=== PATIENT | female | born 1955 | race Caucasian/White ===

== ENCOUNTER → 2023-02-02 12:02 | Outpatient (BNVA) | payer SELFPAY | PROVIDERS: Family Provider Family Medicine; PCP Family Medicine; Visit Provider Clinical Nurse Specialist Adult Health | DX: N39.0 Urinary tract infection, site not specified (principal) | CPT/HCPCS: 81000 ==

== ENCOUNTER → 2023-03-15 09:25 | Outpatient (BNVA) | payer SELFPAY | PROVIDERS: Family Provider Family Medicine; PCP Family Medicine; Visit Provider Family Medicine | DX: I10 Essential (primary) hypertension (principal); N32.89 Other specified disorders of bladder; H81.10 Benign paroxysmal vertigo, unspecified ear | CPT/HCPCS: 80053; 80061; 84443; 85025 ==

== ENCOUNTER 2024-03-13 21:14 | Observation (INO) | payer MEDICARE, SELFPAY ==
[2024-03-13 21:15] VITALS: BP 167/89; PULSE 83; RESP 18; TEMP 36.7; O2SAT 96; BMI 42.0
--- NOTE | 2024-03-13 21:24 | ED_ITS ---
HPI - Nausea/Vomiting/Diarrhea 2 General: Chief complaint: Nausea/Vomiting/Diarrhea Stated complaint: N/V Time Seen by Provider: 03/13/24 21:19 Source: patient Mode of arrival: ambulatory Limitations: no limitations History of Present Illness: Patient is a 68-year-old female who presents to the ED today via EMS for evaluation of nausea and vomiting. Patient tells me following dinner yesterday evening she immediately began feeling nauseous and vomited up her meal. She states nausea has continued throughout today. She has not ate anything since yesterday evening. She states she has tried to hold down liquids but has also vomited those up. She is not having any abdominal pain. She states she is still passing stool and flatulence. She is not running fevers. She arrives with stable vital signs. Previous abdominal surgeries include a hysterectomy. PMH significant for hypertension and COPD. Daily medications include hydrochlorothiazide and lisinopril. MD elicited complaint: nausea and vomiting Onset (ago): day(s) (yesterday) Associated nausea: Yes Associated abdominal pain: No Location of pain: None Exacerbating factors: eating Relieving factors: none Associated symtoms: Reports nausea; Denies chest pain, dizziness, dysuria, fatigue, headache(s) or malaise Related Data Previous Rx's Medication Instructions Recorded meclizine 25 mg tablet 25 mg PO TID #20 tabs 10/18/22 sulfamethoxazole 800 1 tab PO Q12H #14 tabs 02/02/23 mg-trimethoprim 160 mg tablet (Bactrim DS) hydrochlorothiazide 25 mg tablet 25 mg PO DAILY #30 tabs 03/15/23 lisinopril 20 mg tablet 20 mg PO BID #60 tabs 03/15/23 Allergies Allergy/AdvReac Type Severity Reaction Status Date / Time cephalexin [From Keflex] Allergy Severe ADR-Vomitin Verified 03/13/24 21:20 g Review of Systems 2 Const: Denies: fever(s), chills, body aches, fatigue or malaise Card: Denies: chest pain Resp: Denies: dyspnea GI: Reports: abdominal pain (states it feels sore from vomiting), nausea and vomiting; Denies: hematemesis, dysphagia, change in bowel habits, hematochezia or melena : Denies: flank pain, difficulty voiding, dysuria, urinary frequency, urinary urgency or urinary hesitancy Musc: Denies: neck pain, back pain, extremity pain or joint pain Skin/Breast: Denies: rash Neuro: Denies: headache(s), numbness in extremities, weakness in extremities, sensory changes or dizziness PFSH ED 2 PFSH: Medical History Migraine Hypertension Surgical History S/P ESPERANZA-BSO age 30 Family History Other Hypertension Denies family history of Clotting disorder Anesthesia complication Bleeding disorder Social History Smoking and tobacco/nicotine status: current some day tobacco/nicotine user Alcohol intake: never Physical Exam 2 Const: COMMON NORMALS: no acute distress, patient oriented x3, no limitations, alert and well nourished GENERAL APPEARANCE: cooperative NUTRITIONAL APPEARANCE: obese morbidly obese (BMI 42.1) ORIENTATION/CONSCIOUSNESS: Yes awake, Yes oriented to person, Yes oriented to place and Yes oriented to time Eye: COMMON NORMALS: no scleral icterus Chest: COMMONS NORMALS: normal inspection of the chest and normal palpation of entire chest wall Resp: COMMON NORMALS: normal respiratory effort and clear to auscultation bilaterally AUSCULTATION: clear to auscultation bilaterally Cardio: COMMON NORMALS: regular rate and regular rhythm RATE: regular rate RHYTHM: regular rhythm GI: COMMON NORMALS: Soft to palpation, non-tender and no masses INSPECTION: Yes normal to inspection AUSCULTATION: Yes Hypoactive bowel sounds present PALPATION: Yes Soft to palpation, No Tenderness to palpation present (GI), No Guarding due to palpation present (GI) and No Rigid due to palpation OTHER: exam limited secondary to body habitus : COMMON NORMALS: Yes no CVA tenderness BLADDER/KIDNEY EXAM: Yes no CVA tenderness Back/Pelvis: COMMON NORMALS: no CVA tenderness and thoracic and lumbar spine normal to inspection Extremity: COMMON NORMALS: capillary refill normal, no clubbing, cyanosis or edema, no calf tenderness and no pedal edema GENERAL: Yes normal exam except as noted Neuro: CHARLEEN COMA SCALE: document GCS findings Charleen coma scale eye opening: Spontaneous Charleen coma scale verbal response: Orientated Charleen coma scale motor response: Obey commands [place] coma scale total score: 15 COMMON NORMALS: patient oriented x3, moves all extremities, no focal motor deficits and no sensory deficits noted SENSORIUM/ORIENTATION: Yes alert, Yes oriented to person, Yes oriented to place and Yes oriented to time Skin: COMMON NORMALS: no rashes or lesions noted GENERAL SKIN EXAM: no rashes or lesions noted Course 2 Consultations: Consultation #1: Dr. Rice-admit to observation Vital Signs: Vital signs: Vital Signs Temperature 98.0 F 03/13/24 21:15 Pulse Rate 83 03/13/24 21:15 Respiratory Rate 18 03/13/24 21:15 Blood Pressure 167/89 03/13/24 21:15 Pulse Oximetry 96 03/13/24 21:15 Oxygen Delivery Me thod Room Air 03/13/24 21:15 MDM - Nausea/Vomiting/Diarrhea Medical Decision Making Patient is a nice 68-year-old female here for nausea and vomiting starting yesterday evening. She is not having any abdominal pain or obstructive symptoms. She is passing stool and flatulence. Her abdominal XR did not indicate obstruction. Her vital signs are stable. Blood work showing a minor white count of 13.6 most likely from vomiting. She does have acute hyponatremia at 126. Recommend observation for this. Discussed with Dr. Pendleton who agrees. Spoke to Dr. Rice who will accept hospitalization/observation. Medical Records I reviewed the patient's medical records. Lab Data I reviewed the patient's lab results. 03/13/24 21:58 03/13/24 21:58 Radiology Impressions Abdomen X-Ray 03/13/24 21:24 IMPRESSION: Negative for bowel dilation to indicate obstruction. Laboratory Results WBC 13.67 10^3/uL (3.29-11.43) H 03/13/24 21:58 RBC 4.91 10^6/uL (3.85-5.65) 03/13/24 21:58 Hgb 13.80 g/dL (11.27-16.99) 03/13/24 21:58 Hct 40.8 % (36-47) 03/13/24 21:58 MCV 83.1 fl (85-98) L 03/13/24 21:58 MCH 28.1 pg (27-33) 03/13/24 21:58 MCHC 33.8 g/dL (30-55) 03/13/24 21:58 RDW 13.2 % (12.1-15.1) 03/13/24 21:58 Plt Count 284 10^3/cmm (157-399) 03/13/24 21:58 MPV 9.4 fL (7.4-10.4) 03/13/24 21:58 Neut % (Auto) 81.7 % 03/13/24 21:58 Lymph % (Auto) 13.5 % 03/13/24 21:58 Potter % (Auto) 4.2 % 03/13/24 21:58 Eos % (Auto) 0.1 % 03/13/24 21:58 Baso % (Auto) 0.1 % 03/13/24 21:58 Neut # (Auto) 11.17 10^3/uL (1.8-7.7) H 03/13/24 21:58 Lymph # (Auto) 1.8 10^3/uL (0.8-4.8) 03/13/24 21:58 Potter # (Auto) 0.6 10^3/uL (0.2-0.9) 03/13/24 21:58 Eos # (Auto) 0.0 10^3/uL (0.0-0.8) 03/13/24 21:58 Baso # (Auto) 0.0 10^3/uL (0.0-0.1) 03/13/24 21:58 Nucleated RBC % (auto) 0 % 03/13/24 21:58 Nucleated RBCs # 0.0 /100WBC 03/13/24 21:58 Sodium 126 mmol/L (136-145) L 03/13/24 21:58 Potassium 3.7 mmol/L (3.5-5.1) 03/13/24 21:58 Chloride 83 mmol/L (98-107) L 03/13/24 21:58 Carbon Dioxide 27 mmol/L (22-29) 03/13/24 21:58 Anion Gap 19.7 (5-19) H 03/13/24 21:58 BUN 18 mg/dL (8-23) 03/13/24 21:58 Creatinine 0.8 mg/dL (0.5-0.9) 03/13/24 21:58 GFR Calculation 71.8 mL/min (90-130) L 03/13/24 21:58 Glucose 171 mg/dL (65-115) H 03/13/24 21:58 Calculated Osmolality 268 mOsm/kg (285-295) L 03/13/24 21:58 Calcium 9.8 mg/dL (8.5-10.5) 03/13/24 21:58 Total Bilirubin 0.6 mg/dL (0.15-1.2) 03/13/24 21:58 AST 20 U/L (0-32) 03/13/24 21:58 ALT 25 U/L (0-33) 03/13/24 21:58 Alkaline Phosphatase 83 U/L (35-105) 03/13/24 21:58 Total Protein 7.5 g/dL (6.6-8.7) 03/13/24 21:58 Albumin 4.5 g/dL (3.5-5.2) 03/13/24 21:58 Globulin 3.0 g/dL (1.3-4.6) 03/13/24 21:58 Lipase 34 U/L (13-60) 03/13/24 21:58 All radiology interpretation(s) finalized by discharge Discharge Plan Discharge Patient Disposition: Placed in Observation Clinical Impression: Nausea and vomiting, Acute hyponatremia Condition: Stable Prescriptions: No Action meclizine 25 mg tablet 25 mg PO TID Qty: 20 11RF lisinopril 20 mg tablet 20 mg PO BID Qty: 60 11RF hydrochlorothiazide 25 mg tablet 25 mg PO DAILY Qty: 30 11RF sulfamethoxazole-trimethoprim [Bactrim DS] 800-160 mg tablet 1 tab PO Q12H Qty: 14 0RF Referrals: Osman Gerber MD [Primary Care Provider] - Coding Level of Care Code ED Outside Repairer Special for Corie Maddox
--- NOTE | 2024-03-13 21:24 | XRR_ITS ---
PROCEDURE INFORMATION: Exam: XR Abdomen Exam date and time: 03/13/2024 9:33 PM Age: 68 years old Clinical indication: Vomiting; Prior surgery; Surgery date: 6+ months; Surgery type: Total hysterectomy TECHNIQUE: Imaging protocol: Radiologic exam of the abdomen. Views: 2 Views. Upright and supine views. COMPARISON: CR XR chest 1V [id number] 08/06/2018 11:16 AM FINDINGS: Heart/Mediastinum: Cardiomegaly. Gastrointestinal tract: Normal. No bowel dilation. Intraperitoneal space: Normal. No free air. Bones/joints: Unremarkable for age. XR/XR abdomen min 2V [id number] IMPRESSION: Negative for bowel dilation to indicate obstruction.
[2024-03-13 22:03] LABS: Basophils % 0.1 %; Eosinophils % 0.1 %; Hematocrit 40.8 % (36-47); Lymphocytes # 1.8 10^3/uL (0.8-4.8); Lymphocytes % 13.5 %; Mean Corpuscular HGB Conc 33.8 g/dL (30-55); Mean Corpuscular Hemoglobin 28.1 pg (27-33); Mean Corpuscular Volume 83.1 fl (85-98); Mean Platelet Volume 9.4 fL (7.4-10.4); Monocytes # 0.6 10^3/uL (0.2-0.9); Monocytes % 4.2 %; Neutrophils # 11.17 10^3/uL (1.8-7.7); Neutrophils % 81.7 %; Nucleated Red Blood Cells % 0 %; Platelet Count 284 10^3/cmm (157-399); Red Blood Count 4.91 10^6/uL (3.85-5.65); Red Cell Distribution Width 13.2 % (12.1-15.1); White Blood Count 13.67 10^3/uL (3.29-11.43)
[2024-03-13] MEDS: sodium chloride 0.9% 1,000 ML 999 ML IV (22:14)
[2024-03-13] MEDS: metoclopramide 5 mg/mL SDV 2 mL 10 MG IVP (22:14)
[2024-03-13 22:20] LABS: Alanine Aminotransferase 25 U/L (0-33); Albumin Level 4.5 g/dL (3.5-5.2); Alkaline Phosphatase 83 U/L (35-105); Anion Gap 19.7 (5-19); Aspartate Amino Transferase 20 U/L (0-32); Blood Urea Nitrogen 18 mg/dL (8-23); Calcium 9.8 mg/dL (8.5-10.5); Carbon Dioxide 27 mmol/L (22-29); Chloride 83 mmol/L (98-107); Creatinine Clr Calc Pharmacy 78.3961; Glomerular Filtration Rate 71.8 mL/min (90-130); Glucose 171 mg/dL (65-115); Lipase 34 U/L (13-60); Osmolality Calculated 268 mOsm/kg (285-295); Potassium 3.7 mmol/L (3.5-5.1); Sodium 126 mmol/L (136-145); Total Bilirubin 0.6 mg/dL (0.15-1.2); Total Protein 7.5 g/dL (6.6-8.7)
[2024-03-14] VITALS (8 sets, daily range): BP systolic 128–180; BP diastolic 72–90; PULSE 75–97; RESP 17–18; TEMP 36.6–37.1; O2SAT 91–96; BMI 41.1
[2024-03-14] MEDS: ondansetron 2 mg/ML SDV 2 mL 4 MG IVP ×4 (00:22→18:35)
--- NOTE | 2024-03-14 01:25 | P.HP_ITS ---
Providers/Chief Complaint 2 Admitting Physician: Marciano Rice Primary Care Provider: Osman Gerber MD Chief Complaint: N/V History of Present Illness Pleasant 68-year-old lady came in for evaluation due to 2 days of recurrent nausea and vomiting, dizziness with everything spinning around her with difficulty walking, has been unable to keep anything down by mouth. Has had 1 episode of watery diarrhea today. In ER she is hypertensive, blood pressure 196/105, she normally takes HCTZ, lisinopril. She is afebrile, WBC 13.67. Sodium is noted to be 126. Glucose also with elevation 171 without history of diabetes. Anion gap 19.7. Abdominal x-ray negative for bowel dilation to indicate obstruction. She received a bolus of sodium chloride, Zofran and Reglan in ER. She does not take any NSAIDs but does take Excedrin daily. Denies any hematemesis. Never smoker. Does not drink any alcohol. Has been having some abdominal as well as shoulder and neck discomfort after vomiting episodes. She also reports history of recurrent sebaceous cyst but states one of them had opened up and has been having purulent drainage on the superior left buttock which she states they have been draining daily with her and applying a dressing. Review of Systems 2 Const: Denies: fever(s), chills, body aches or malaise ENMT: Denies: throat pain Card: Denies: chest pain, edema, pre-syncope or dyspnea on exertion Resp: Denies: dyspnea, productive cough, change in phlegm color or hemoptysis GI: Reports: nausea, vomiting and diarrhea (Only 1 episode today); Denies: abdominal pain, constipation, hematochezia or melena : Denies: flank pain, urinary frequency or hematuria Musc: Denies: back pain, joint swelling or joint redness Skin/Breast: Reports: new lesions; Denies: rash Neuro: Reports: difficulty walking and dizziness; Denies: headache(s) or confusion Medications/Allergies Home Medications Medication Instructions Recorded Confirmed Last Taken Type hydrochlorothiazide 25 mg tablet 25 mg PO DAILY #30 tabs 03/15/23 03/14/24 1 Day Ago Rx ~03/13/24 lisinopril 20 mg tablet 20 mg PO BID #60 tabs 03/15/23 03/14/24 1 Day Ago Rx ~03/13/24 Allergies Allergy/AdvReac Type Severity Reaction Status Date / Time cephalexin [From Keflex] Allergy Severe ADR-Vomitin Verified 03/13/24 21:20 g PFSH Acute 2 PFSH: Medical History Migraine Hypertension Surgical History S/P ESPERANZA-BSO age 30 Family History Other Hypertension Denies family history of Clotting disorder Anesthesia complication Bleeding disorder Social History Smoking and tobacco/nicotine status: current some day tobacco/nicotine user Alcohol intake: never Vitals/I&O/Wt Last Vital Signs Temp 98.0 F 03/13/24 21:15 Pulse 95 03/14/24 00:47 Resp 18 03/14/24 00:47 BP 180/86 03/14/24 00:47 Pulse Ox 91 03/14/24 00:47 O2 Del Method Room Air 03/13/24 21:15 03/13/24 03/13/24 03/14/24 14:59 22:59 06:59 Intake Total 1000 / 1000 Balance 1000 / 1000 Weight last 48 hrs Weight 102.058 kg Weight 104.326 kg Physical Exam 2 Narrative: Sitting up in bed. Const: COMMON NORMALS: patient oriented x3 and alert GENERAL APPEARANCE: c ooperative NUTRITIONAL APPEARANCE: obese ORIENTATION/CONSCIOUSNESS: Yes awake HENMT: COMMON NORMALS: oropharynx normal Neck/C-Spine: COMMON NORMALS: no JVD Resp: COMMON NORMALS: normal respiratory effort and clear to auscultation bilaterally AUSCULTATION: clear to auscultation bilaterally Cardio: COMMON NORMALS: no JVD, regular rhythm, S1 normal heart sound present, S2 normal heart sound present and No murmurs present (Cardio) RHYTHM: regular rhythm HEART SOUNDS: S1 normal heart sound present and S2 normal heart sound present GI: COMMON NORMALS: Normal to inspection, nondistended, normoactive bowel sounds present, Soft to palpation and non-tender PALPATION: Yes Soft to palpation Extremity: COMMON NORMALS: no joint enlargement and no pedal edema Neuro: COMMON NORMALS: patient oriented x3 and moves all extremities S ENSORIUM/ORIENTATION: Yes alert Skin: LESIONS: lesion noted (L buttock pustule with purulent discharge, 1.5 cm in size, mild rim of eryt) Data 03/13/24 21:58 03/13/24 21:58 A&P Assessment and plan (1) Acute hyponatremia: Suspected acute hyponatremia, but timing is not clear, chronic hyponatremia is possible as well. Reviewed vitals, CBC, CMP, abdominal x-ray, ER provider note, discussed with ER provider. Suspected multifactorial hyponatremia including hypovolemic with poor oral intake, nausea and vomiting, today also had 1 episode of watery diarrhea. Additionally secondary to HCTZ. She received a bolus of NS. Will request repeat chemistry, continue with gentle IV hydration. Monitor for risk of rapid increase in sodium, which would be less concerning with acute hyponatremia, although as mentioned exact timing is unknown. Monitor for risk of fluid overload. Check TSH. Check urine sodium, urine osmolality. Check respiratory viral panel. Hold and consider discontinuation of HCTZ at discharge. (2) Nausea and vomiting: Difficult to tell whether nausea vomiting related to hyponatremia or the cause of hyponatremia, although likely contributing. Lipase reviewed and normal. Possible gastritis from Excedrin. PPI started. Discussed with her to avoid Excedrin for now. Never smoker, does not drink alcohol or recreational substance. Does not take any other NSAIDs. Check respiratory viral panel. Discussed with her also, with smoking, hypertension, hyperglycemia (without history of diabetes), difficulty with ambulation, vertigo, assess MRI brain for possible posterior circulation CVA. NPO. Sips chips and meds. Zofran as needed. Qualifiers: Vomiting type: unspecified Qualified Code(s): R11.2 - Nausea with vomiting, unspecified (3) Vertigo: As above, assess MRI for possible posterior circulation CVA. Aspirin 162. Gentle IV hydration. Monitor blood pressures. Avoid hypotension. Not a candidate for reperfusion therapy. Monitor on telemetry. Assess A1c. Encourage smoking cessation. Optimize risk factors. Additional assessment in case CVA identified on MRI. Assess respiratory viral panel. Fall precautions. PT assessment. (4) Skin pustule: Superior left buttock pustule with purulent discharge. With purulent discharge, requesting culture. Discussed with her for now treatment of doxycycline, additional assessment with soft tissue ultrasound to assess for any abscess that needs surgical drainage. (5) Hypertension: Hold HCTZ with hyponatremia, continue lisinopril. Monitor blood pressure. (6) Hyperglycemia: Without history of diabetes, assess A1c. Plan Smoking: Encourage cessation. Migraine Obesity: Follow-up with primary provider for weight loss options Attestations 2 Medical Necessity Statement*: Place in observation for additional assessment and management of hyponatremia, nausea and vomiting with inability to keep oral intake, vertigo, assessment of possible CVA, assessment of skin pustule for possible abscess and additional comorbidities as above. and High MDM includes amount and/or complexity of data reviewed/ordered [ resulted lab(s)/test(s), ordered lab(s)/test(s) and other healthcare professional discussion] and described risk of complication, morbidity or mortality of management as documented Diagnoses Acute hyponatremia E87.1 Nausea and vomiting R11.2 Vomiting type: unspecified Vertigo R42 Skin pustule L08.9 Hypertension I10 Hyperglycemia R73.9
--- NOTE | 2024-03-14 01:25 | MR_ITS ---
WS: [id number] MRI BRAIN WITHOUT CONTRAST HISTORY: vertigo, assess for post circ CVA COMPARISON: None available. TECHNIQUE: Diffusion imaging, multiplanar T1, T2 and FLAIR imaging obtained. No evidence for acute infarct or hemorrhage. Lai-white matter differentiation is normal. Moderate bilateral symmetric volume loss and atrophy, more than expected for the patient's age. There are numerous patchy areas of increased T2 and FLAIR signal throughout the white matter. Additional s mall vessel disease in the nicole bilateral. No prior large territory infarct or lacuna. Ventricles and extra-axial spaces are normal. No inferior displacement of cerebellar tonsils. The sella turcica and pituitary gland are unremarkabl e. Dural venous sinuses and [place] of [place] demonstrate no abnormality on this unenhanced studies. Norm al flow voids. Paranasal sinuses: Clear. Mastoid air cells: Normal. Calvarium and scalp: Intact. Well-circumscribed superficial mass centered anterior to the left ear measures 11 x 14 mm. Low signal on the T1 and increased on T2. This is very superficial and is probably a sebaceous cyst. Appears to be external to the parotid gland. 2 smaller but similar findings along the RIGHT temporal region. MR/MR head wo con* [id number] IMPRESSION: 1. No acute infarct. No posterior fossa infarct. 2. Moderate volume loss and small vessel ischemic disease, more advanced than expected for a patient of this age. May be related to hypertension, diabetes or smoking.
--- NOTE | 2024-03-14 01:30 | US_ITS ---
WS: [id number] ULTRASOUND SOFT TISSUES LEFT gluteal region. HISTORY: L buttock pustule COMPARISON: None available. TECHNIQUE: 2-D and color Doppler imaging is submitted. There is a heterogeneous mass which is predominantly solid with a few cystic areas and increased vasc ularity associated with the LEFT buttock. This corresponds to the mass described. There is marked inc reased vascularity. There does appear to be a tract extending superficial. Mass measures 2.0 x 0.7 cm . US/US soft tissue/extremity [id number] IMPRESSION: Complex mass with increased vascularity centered in the LEFT gluteal region. Th is is probably a phlegmon and developing abscess due to the marked increased va scularity and heterogeneity. There may be a few small foci of air present also. There is very little fluid component.
[2024-03-14 01:37] LABS: Ketone (Acetest) Serum Negative (Negative)
[2024-03-14 01:48] LABS: Lactate (Lactic Acid level) 1.3 mmol/L (0.5-2.2)
[2024-03-14 01:50] LABS: Salicylate < 0.3 mg/dL (3-10)
[2024-03-14 01:55] LABS: Estmated Average Glucose 123; Hemoglobin A1C 5.9 % (4.0-6.0)
[2024-03-14] MEDS: doxycycline 100 MG in sodium chloride 0.9% (plus) 100 ML IV (02:03)
[2024-03-14] MEDS: enoxaparin 40 mg/0.4 mL Syringe SUBCUT (02:03)
[2024-03-14] MEDS: lactated ringers 1,000 ML 30 ML IV (02:03)
[2024-03-14] MEDS: acetaminophen 325 mg Tablet 650 MG PO ×2 (02:03→20:22)
[2024-03-14] MEDS: pantoprazole 40 mg SDV IVP (02:03)
[2024-03-14] MEDS: lisinopril 20 mg Tablet PO ×3 (02:04→18:00)
[2024-03-14] MEDS: aspirin 81 mg EC Tablet 162 MG PO (02:04)
[2024-03-14 02:11] LABS: Thyroid Stimulating Hormone 3.32 uIU/mL (0.27-4.20)
[2024-03-14 03:11] LABS: Adenovirus Not Detected (NOT DETECT); Chlamydia Pneumoniae Not Detected (NOT DETECT); Coronavirus 229E,HKU1,NL63,OC4 Not Detected (NOT DETECT); Human Metapneumovirus Not Detected (NOT DETECT); Human Rhinovirus/Enterovirus Not Detected (NOT DETECT); Influenza A Not Detected (NOT DETECT); Influenza A H1 Not Detected (NOT DETECT); Influenza A H1-2009 Not Detected (NOT DETECT); Influenza A H3 Not Detected (NOT DETECT); Influenza B Not Detected (NOT DETECT); Mycoplasma Pneumoniae Not Detected (NOT DETECT); Parainfluenza Virus Type 1 Not Detected (NOT DETECT); Parainfluenza Virus Type 2 Not Detected (NOT DETECT); Parainfluenza Virus Type 3 Not Detected (NOT DETECT); Parainfluenza Virus Type 4 Not Detected (NOT DETECT); Respiratory Syncytial Virus A Not Detected (NOT DETECT); Respiratory Syncytial Virus B Not Detected (NOT DETECT); SARS-COV-2 Not Detected (NOT DETECT)
[2024-03-14 05:52] LABS: Basophils % 0.1 %; Eosinophils % 0.1 %; Lymphocytes % 19.1 %; Mean Corpuscular Volume 84.9 fl (85-98); Mean Platelet Volume 9.7 fL (7.4-10.4); Monocytes # 0.5 10^3/uL (0.2-0.9); Monocytes % 4.8 %; Neutrophils # 7.96 10^3/uL (1.8-7.7); Neutrophils % 75.4 %; Nucleated Red Blood Cells % 0 %; Platelet Count 279 10^3/cmm (157-399); Red Blood Count 4.71 10^6/uL (3.85-5.65); Red Cell Distribution Width 13.1 % (12.1-15.1); White Blood Count 10.55 10^3/uL (3.29-11.43)
[2024-03-14 06:17] LABS: Blood Urea Nitrogen 16 mg/dL (8-23); Carbon Dioxide 26 mmol/L (22-29); Chloride 88 mmol/L (98-107); Creatinine Clr Calc Pharmacy 78.2354; Glucose 112 mg/dL (65-115); Osmolality Calculated 264 mOsm/kg (285-295); Sodium 126 mmol/L (136-145)
[2024-03-14 06:23] LABS: Anion Gap 15.8 (5-19); Potassium 3.8 mmol/L (3.5-5.1)
[2024-03-14 07:09] LABS: Bilirubin Urine Negative (Negative); Blood Urine Negative (Negative); Glucose Urine UA Negative (Normal); Ketones Urine 1+ (Negative); Leukocyte Esterase Urine Negative (Negative); Nitrate Urine Negative (Negative); Protein Urine Trace (Negative); Specific Gravity, Urine 1.022 (1.005-1.030); Urine Appearance Clear (CLEAR); Urine Color Yellow (Yellow); pH Urine 5.5 (5-7)
[2024-03-14 07:14] LABS: Add Urine Microscopic? YES; Bacteria Urine None Seen /hpf; Hyaline Casts Urine 2.05 /lpf; RBC Urine 0-2 /hpf (0-2); Squamous Epithelial Cell Urine 0-5 /hpf (0-5); WBC Urine 0-5 /hpf (0-5)
[2024-03-14 07:26] LABS: Add Urine Culture? No; UA Slide Review UA Slide Review Perf
--- NOTE | 2024-03-14 08:24 | PHA.VACGOAL ---
Vancomycin Goal - Goal Vancomycin Goal:: 10-15 mg/L Vancomycin Indication:: SSTI - Therapy Current therapy:: Pip/Tazo Day of therpy:: Day [1]of [] . Actual body weight (kg): 103.958 kg - Data Labs: WBC 10.55 10^3/uL (3.29-11.43) 03/14/24 04:47 RBC 4.71 10^6/uL (3.85-5.65) 03/14/24 04:47 Hgb 13.20 g/dL (11.27-16.99) 03/14/24 04:47 Hct 40.0 % (36-47) 03/14/24 04:47 MCV 84.9 fl (85-98) L 03/14/24 04:47 MCH 28.0 pg (27-33) 03/14/24 04:47 MCHC 33.0 g/dL (30-55) 03/14/24 04:47 RDW 13.1 % (12.1-15.1) 03/14/24 04:47 Sodium 126 mmol/L (136-145) L 03/14/24 04:47 Potassium 3.8 mmol/L (3.5-5.1) 03/14/24 04:47 Chloride 88 mmol/L (98-107) L 03/14/24 04:47 Carbon Dioxide 26 mmol/L (22-29) 03/14/24 04:47 Anion Gap 15.8 (5-19) 03/14/24 04:47 BUN 16 mg/dL (8-23) 03/14/24 04:47 Creatinine 0.6 mg/dL (0.5-0.9) 03/14/24 04:47 GFR Calculation 100.0 mL/min (90-130) 03/14/24 04:47 Last dialysis session:: N/A Treatment plan:: new consult Regimen:: Patient is 68 year old female with Superior left buttock pustule with purulent discharge. Scr of 0.6 mg/dL with CrCl of 78.23 ml/min. WBC elevated at 13.67 upon admission trending down to 10.55. Start on maintenance dose of 750 mg q12h. T 1/2 of 11 hours and an expected Cmin of 12.7 mg/L. Pharmacy will continue to monitor daily.
[2024-03-14] MEDS: vancomycin 750 MG in sodium chloride 0.9% 250 ML 250 MG IV ×2 (08:50→20:08)
[2024-03-14] MEDS: piperacillin-tazobactam 3.375 GM in sodium chloride 0.9% (plus) 50 ML IV ×2 (10:16→18:01)
[2024-03-14 10:37] LABS: Urine Random Sodium 61 mmol/L
[2024-03-14 11:21] LABS: Sodium 124 mmol/L (136-145)
--- NOTE | 2024-03-14 14:03 | P.PN_ITS ---
Subjective 2 Subjective: - Patient was seen this morning -She is alert oriented x 3, following al l commands -She reports dizziness when changing hea d position or suddenly turning her head, typically dizziness is short-lived, intermittently associate with nausea -Her nausea is mild currently, no diarrh ea, no abdominal pain -Denies any facial droop, no slurring of words, no focal weakness, no unsteadiness on her feet -She does report a left gluteal pustule, that has been draining for the last few weeks, she tells me that at home her has been helping drain the pustule, she has had increased purulent drainage Vitals/I&O/Wt Last Vital Signs Temp 98.4 F 03/14/24 12:00 Pulse 81 03/14/24 12:00 Resp 18 03/14/24 12:00 BP 128/73 03/14/24 12:00 Pulse Ox 95 03/14/24 12:00 O2 Del Method Room Air 03/14/24 12:00 03/13/24 03/14/24 03/14/24 22:59 06:59 14:59 Intake Total 1200 / 1200 250 / 250 Output Total 200 / 200 Balance 1200 / 1200 50 / 50 Weight last 48 hrs Weight 103.958 kg Weight 102.058 kg Weight 104.326 kg Physical Exam 2 Const: COMMON NORMALS: no acute distress and patient oriented x3 Resp: COMMON NORMALS: normal respiratory effort, No retractions, No use of accessory muscles and clear to auscultation bilaterally AUSCULTATION: clear to auscultation bilaterally Cardio: COMMON NORMALS: regular rate, regular rhythm, S1 normal heart sound present and S2 normal heart sound present RATE: regular rate RHYTHM: r egular rhythm HEART SOUNDS: S1 normal heart sound present and S2 normal heart sound present GI: COMMON NORMALS: Normal to inspection, nondistended, normoactive bowel sounds present and non-tender Back/Pelvis: OTHER: Right gluteus, area of erythema, purulent drainage, measuring 1 x 1 cm Extremity: COMMON NORMALS: no pedal edema Neuro: COMMON NORMALS: patient oriented x3 Psych: COMMON NORMALS: mental status grossly normal Data 03/14/24 04:47 03/14/24 10:44 Micro: Microbiology 03/14/24 06:20 Gram Stain - Final Buttock A&P Assessment and plan (1) Acute hyponatremia: - Likely component of nausea, vomiting, diarrhea, hydrochlorothiazide -Will hold off of further fluid therapy -Monitor serum sodiums -Will consider salt therapy based on clinical progress -Neurochecks ? Aspiration precautions (2) Nausea and vomiting: - Will monitor nausea vomiting ? Nausea medications ordered Qualifiers: Vomiting type: unspecified Qualified Code(s): R11.2 - Nausea with vomiting, unspecified (3) Vertigo: Sounds like benign positional vertigo ? MRI of the brain no acute finding neck -Will have PT OT assess her ? Check orthostatic vitals (4) Skin pustule: Ultrasound of gluteus shows US/US soft tissue/extremity [id number] IMPRESSION: Complex mass with increased vascularity centered in the LEFT gluteal region. This is probably a phlegmon and developing abscess due to the marked increased vascularity and heterogeneity. There may be a few small foci of air present also. There is very little fluid component Plan ? Continue vancomycin, continue Zosyn -Is currently n.p.o. ? General Surgery consulted for incision and drainage. (5) Hypertension: Hold HCTZ with hyponatremia, continue lisinopril. Monitor blood pressure. (6) Hyperglycemia: Without history of diabetes, assess A1c 5.9 (7) Gluteal abscess: Plan Smoking: Encourage cessation. Migraine Obesity: Follow-up with primary provider for weight loss options Attestations 2 Medical Necessity Statement*: Patient requires hospitalization for skin abscess, benign positional vertigo, nausea, vomiting, hyponatremia Diagnoses Acute hyponatremia E87.1 Nausea and vomiting R11.2 Vomiting type: unspecified Vertigo R42 Skin pustule L08.9 Hypertension I10 Hyperglycemia R73.9 Gluteal abscess L02.31
[2024-03-14 14:10] LABS: Sodium 125 mmol/L (136-145)
--- NOTE | 2024-03-14 14:13 | P.CONIM_ITS ---
Providers/Reason For Consult 2 Consulting Physician/Specialty*: Dr. Emery Jordan DO/General Surgery Reason for Consult*: Left gluteal abscess Attending Physician: Theron Saez MD Primary Care Provider: Osman Gerber MD History of Present Illness History of Present Illness Savi Lucas is a 68 year old female, with history of recurrent gluteal abscesses, presenting to the hospital with a several day history of left gluteal pain and purulent drainage. She has sharp pain to palpation that does not radiate. Nothing seems to make the pain better. She denies any fever or chills. CT of the area shows a phlegmon Review of Systems 2 General: Reports: 10 or more systems reviewed and unremarkable except in HPI and below Medications/Allergies Home Medications Medication Instructions Recorded Confirmed Last Taken Type hydrochlorothiazide 25 mg tablet 25 mg PO DAILY #30 tabs 03/15/23 03/14/24 1 Day Ago Rx ~03/13/24 lisinopril 20 mg tablet 20 mg PO BID #60 tabs 03/15/23 03/14/24 1 Day Ago Rx ~03/13/24 Allergies Allergy/AdvReac Type Severity Reaction Status Date / Time cephalexin [From Keflex] Allergy Severe ADR-Vomitin Verified 03/13/24 21:20 g Current Medications Generic Name Dose Route Start Last Admin Trade Name Freq PRN Reason Stop Dose Admin Acetaminophen 650 mg 03/14/24 01:30 03/14/24 02:03 Acetaminophen 325 Mg Tablet PO 650 mg Q6H PRN Administration Mild/Mod Pain Or Temp >/= 101 Aspirin 162 mg 03/14/24 01:45 03/14/24 02:04 Aspirin 81 Mg Ec Tablet PO 162 mg DAILY PADMINI Administration Enoxaparin Sodium 40 mg 03/14/24 01:30 03/14/24 02:03 Enoxaparin 40 Mg/0.4 Ml Syringe SUBCUT 40 mg Q24H PADMINI Administration Vancomycin HCl 750 mg/ Sodium 250 mls @ 250 mls/hr 03/14/24 08:30 03/14/24 09:50 Chloride IV Infused Q12H PADMINI Infusion Piperacillin Sod/Tazobactam 50 mls @ 12.5 mls/hr 03/14/24 10:00 03/14/24 10:16 Sod 3.375 gm/ Sodium Chloride IV 12.5 mls/hr Q8H PADMINI Administration Lisinopril 20 mg 03/14/24 01:40 03/14/24 08:42 Lisinopril 20 Mg Tablet PO 20 mg BID PADMINI Administration Ondansetron HCl 4 mg 03/14/24 01:30 03/14/24 10:21 Ondansetron 2 Mg/Ml Sdv 2 Ml IVP 4 mg Q8H PRN Administration vomiting, or N/V if npo Pantoprazole Sodium 40 mg 03/14/24 01:30 03/14/24 02:03 Pantoprazole 40 Mg Sdv IVP 40 mg Q24H PADMINI Administration PFSH Acute 2 PFSH: Medical History Migraine Hypertension Surgical History S/P ESPERANZA-BSO age 30 Family History Other Hypertension Denies family history of Clotting disorder Anesthesia complication Bleeding disorder Social History Smoking and tobacco/nicotine status: current some day tobacco/nicotine user Alcohol intake: never Vitals/I&O/Wt Last Vital Signs Temp 98.4 F 03/14/24 12:00 Pulse 81 03/14/24 12:00 Resp 18 03/14/24 12:00 BP 128/73 03/14/24 12:00 Pulse Ox 95 03/14/24 12:00 O2 Del Method Room Air 03/14/24 12:00 03/13/24 03/14/24 03/14/24 22:59 06:59 14:59 Intake Total 1200 / 1200 250 / 250 Output Total 200 / 200 Balance 1200 / 1200 50 / 50 Weight last 48 hrs Weight 229 lb 3 oz Weight 225 lb Weight 230 lb Physical Exam 2 Narrative: General : Patient is well developed , no acute distress, oriented x3 Head : Normal cephalic, a-traumatic. Ears : Pinnae and external canal are normal. Hearing is normal. Eyes : PERRLA, Sclera and injection are normal. No conjunctival discharge. Nose : Mucous membranes are without erythema. Throat : buccal mucosa is normal, gums are without significant recession or hypertrophy. Lungs : Equal chest rise bilaterally, no use of accessory muscles, trachea is midline. Cor : Rate and rhythm are normal. Abdomen : Soft, ND, NT, no g/r/m Skin: There is an area on the left gluteus with erythema induration and fluctuance draining some purulence Extremities : No edema, no cyanosis or clubbing, dorsalis pedis pulses are present bilaterally, non-tender to palpation of calves. Upper extremities are normal bilaterally. Back : non-tender to palpation, no CVA tenderness. Neuro : CN II - XII intact, Upper and lower extremities have equal and full strength Data 03/14/24 04:47 03/14/24 10:44 Micro: Microbiology 03/14/24 06:20 Gram Stain - Final Buttock A&P Assessment and plan (1) Gluteal abscess: Plan Incision and drainage left gluteal abscess Risks and benefits of the procedure, including but not limited to, bleeding, infection, recurrence, scar, numbness, pain, damage to surrounding structures, were explained to the patient. She is understanding of the risks and wished to proceed. Coding Level of Care Code 55307 Diagnoses Gluteal abscess L02.31
--- NOTE | 2024-03-14 14:26 | PM.PROC ---
Procedure Note: Date of procedure: 03/14/24 Pre-procedure diagnosis: Left gluteal abscess Post-procedure diagnosis: same Procedure: Incision and drainage of left gluteal abscess Op report anesthesia: Local Performing Provider: Emery Jordan Estimated blood loss (mL): 5 Complications: None apparent. The area was inspected prepped and draped usual sterile fashion. Timeout was performed. 2% lidocaine with epinephrine was used to anesthetize the area over the gluteal abscess. A 15 blade scalpel was used to make a 1 cm incision. Some purulence was expelled. Burn tried with gauze was packed into the wound and sterile bandage was applied. Patient tolerated procedure well. Coding Level of Care Code Acute Code for g Fwd
--- NOTE | 2024-03-14 14:33 | SUR.OPER ---
patient brought down for bedside procedure per dr. acosta. timeout done at 1415. supplies requested from OR. 9ml of 1% lidocaine used for local. drained and packed, gauze placed and dressed with microfoam tape. patient tolerated well. report given to floor nurse and returned back to floor.
[2024-03-14] MEDS: capsaicin 0.025% cream 60 gm 1 APPLIC TOPICAL (18:01)
[2024-03-14 18:25] LABS: Sodium 128 mmol/L (136-145)
[2024-03-15] VITALS (9 sets, daily range): BP systolic 109–149; BP diastolic 61–82; PULSE 73–84; RESP 16–18; TEMP 36.8–37.3; O2SAT 91–98
[2024-03-15] MEDS: pantoprazole 40 mg SDV IVP (01:14)
[2024-03-15] MEDS: enoxaparin 40 mg/0.4 mL Syringe SUBCUT (01:14)
[2024-03-15] MEDS: piperacillin-tazobactam 3.375 GM in sodium chloride 0.9% (plus) 50 ML IV (01:14)
[2024-03-15] MEDS: aspirin 81 mg EC Tablet 162 MG PO (08:45)
[2024-03-15] MEDS: vancomycin 750 MG in sodium chloride 0.9% 250 ML 250 MG IV (08:49)
[2024-03-15] MEDS: ondansetron 2 mg/ML SDV 2 mL 4 MG IVP (08:50)
[2024-03-15 09:04] LABS: Basophils % 0.4 %; Eosinophils # 0.1 10^3/uL (0.0-0.8); Eosinophils % 0.7 %; Lymphocytes # 2.4 10^3/uL (0.8-4.8); Lymphocytes % 22.1 %; Mean Corpuscular HGB Conc 32.4 g/dL (30-55); Mean Corpuscular Hemoglobin 27.8 pg (27-33); Mean Corpuscular Volume 85.6 fl (85-98); Mean Platelet Volume 9.3 fL (7.4-10.4); Monocytes # 0.8 10^3/uL (0.2-0.9); Monocytes % 7.1 %; Neutrophils # 7.66 10^3/uL (1.8-7.7); Neutrophils % 69.3 %; Nucleated Red Blood Cells % 0 %; Platelet Count 269 10^3/cmm (157-399); Red Blood Count 4.79 10^6/uL (3.85-5.65); Red Cell Distribution Width 13.5 % (12.1-15.1); White Blood Count 11.05 10^3/uL (3.29-11.43)
--- NOTE | 2024-03-15 09:06 | PC.NURSE ---
Notified Dr. Saez patient refused lisinopril. BP 114/61 patient feels is to low.
[2024-03-15 09:19] LABS: Alanine Aminotransferase 26 U/L (0-33); Albumin Level 3.9 g/dL (3.5-5.2); Alkaline Phosphatase 72 U/L (35-105); Anion Gap 12.6 (5-19); Aspartate Amino Transferase 18 U/L (0-32); Blood Urea Nitrogen 9 mg/dL (8-23); Calcium 8.9 mg/dL (8.5-10.5); Carbon Dioxide 29 mmol/L (22-29); Chloride 94 mmol/L (98-107); Creatinine Clr Calc Pharmacy 79.1295; Globulin 2.8 g/dL (1.3-4.6); Glomerular Filtration Rate 71.8 mL/min (90-130); Glucose 117 mg/dL (65-115); Osmolality Calculated 274 mOsm/kg (285-295); Potassium 3.6 mmol/L (3.5-5.1); Sodium 132 mmol/L (136-145); Total Bilirubin 0.6 mg/dL (0.15-1.2); Total Protein 6.7 g/dL (6.6-8.7)
--- NOTE | 2024-03-15 11:55 | PM.DCS ---
Discharge Providers Date of Admission: 03/14/24 00:00 Date of Discharge: March 15, 2024 Attending Provider at Admission: Marciano Rice Attending Provider at Discharge: Theron Saez MD Primary Care Provider: Osman Gerber MD Diagnoses at Discharge Discharge Diagnosis (1) Gluteal abscess: Status: Acute Reason for Visit Reason for Visit: N/V Hospital Course Hospital Course This is a 68-year-old female with a past medical history of migraines, hypertension who presents [facility] due to dizziness, nausea, vomiting, left gluteal abscess For her dizziness, likely multifactorial, from nausea, vomiting, diarrhea, hyponatremia, and benign positional vertigo Patient reports dizziness, vertigo upon changing head position, I had a detailed discussion with her about benign positional vertigo, MRI brain, no acute findings, discussed maneuvers, discharged on meclizine as needed as needed For her acute hyponatremia, likely secondary to hydrochlorothiazide, which was discontinued, serum sodium on discharge 132. Patient was advised to discontinue hydrochlorothiazide on discharge, follow-up with primary care provider in 1 week for recheck BMP Patient had a abscess of the left gluteal region, status post inpatient incision and drainage and IV antibiotics. She will be discharged on wound care instructions, packing changes daily, follow-up with primary care, discharged on antibiotic therapy as outpatient. Patient reports a history of multiple abscesses that developed chronically on multiple spots throughout her body, discussed with her hidradenitis suppurativa, should follow-up with primary care provider for consideration of chronic suppressive antibiotics or referral to dermatology or rheumatology. Physical Exam Const: COMMON NORMALS: no acute distress and patient oriented x3 Resp: COMMON NORMALS: normal respiratory effort, No retractions, No use of accessory muscles and clear to auscultation bilaterally AUSCULTATION: clear to auscultation bilaterally Cardio: COMMON NORMALS: regular rate, regular rhythm, S1 normal heart sound present and S2 normal heart sound present RATE: regular rate RHYTHM: regular rhythm HEART SOUNDS: S1 normal heart sound present and S2 normal heart sound present GI: COMMON NORMALS: Normal to inspection, nondistended, normoactive bowel sounds present Extremity: COMMON NORMALS: no pedal edema Neuro: COMMON NORMALS: patient oriented x3 Psych: COMMON NORMALS: mental status grossly normal Discharge Data Studies Completed and Pending Completed Studies During Hospitalization Category Date Time Status XR abdomen min 2V [id number] Stat Exams 03/13/24 21:24 Completed MR head wo con* [id number] Routine MRI 03/14/24 01:25 Completed US soft tissue and or extremity [US soft tissue/ Ultrasound 03/14/24 01:30 Completed extremity [id number]] Routine Pending at discharge Category Date Time Status Osmolality Urine Routine Lab 03/14/24 07:00 Received Vancomycin Trough Routine Lab 03/15/24 19:30 Ordered Wound Culture and Gram Stain Routine Lab 03/14/24 06:20 Results Radiology Impressions Abdomen X-Ray 03/13/24 21:24 IMPRESSION: Negative for bowel dilation to indicate obstruction. Head MRI 03/14/24 01:25 IMPRESSION: 1. No acute infarct. No posterior fossa infarct. 2. Moderate volume loss and small vessel ischemic disease, more advanced than expected for a patient of this age. May be related to hypertension, diabetes or smoking. Soft Tissue Ultrasound 03/14/24 01:30 IMPRESSION: Complex mass with increased vascularity centered in the LEFT gluteal region. This is probably a phlegmon and developing abscess due to the marked increased vascularity and heterogeneity. There may be a few small foci of air present also. There is very little fluid component. Laboratory Results WBC 11.05 10^3/uL (3.29-11.43) 03/15/24 08:42 RBC 4.79 10^6/uL (3.85-5.65) 03/15/24 08:42 Hgb 13.30 g/dL (11.27-16.99) 03/15/24 08:42 Hct 41.0 % (36-47) 03/15/24 08:42 MCV 85.6 fl (85-98) 03/15/24 08:42 MCH 27.8 pg (27-33) 03/15/24 08:42 MCHC 32.4 g/dL (30-55) 03/15/24 08:42 RDW 13.5 % (12.1-15.1) 03/15/24 08:42 Plt Count 269 10^3/cmm (157-399) 03/15/24 08:42 MPV 9.3 fL (7.4-10.4) 03/15/24 08:42 Neut % (Auto) 69.3 % 03/15/24 08:42 Lymph % (Auto) 22.1 % 03/15/24 08:42 [place] % (Auto) 7.1 % 03/15/24 08:42 Eos % (Auto) 0.7 % 03/15/24 08:42 Baso % (Auto) 0.4 % 03/15/24 08:42 Neut # (Auto) 7.66 10^3/uL (1.8-7.7) 03/15/24 08:42 Lymph # (Auto) 2.4 10^3/uL (0.8-4.8) 03/15/24 08:42 [place] # (Auto) 0.8 10^3/uL (0.2-0.9) 03/15/24 08:42 Eos # (Auto) 0.1 10^3/uL (0.0-0.8) 03/15/24 08:42 Baso # (Auto) 0.0 10^3/uL (0.0-0.1) 03/15/24 08:42 Nucleated RBC % (auto) 0 % 03/15/24 08:42 Nucleated RBCs # 0.0 /100WBC 03/15/24 08:42 Sodium 132 mmol/L (136-145) L 03/15/24 08:42 Potassium 3.6 mmol/L (3.5-5.1) 03/15/24 08:42 Chloride 94 mmol/L (98-107) L 03/15/24 08:42 Carbon Dioxide 29 mmol/L (22-29) 03/15/24 08:42 Anion Gap 12.6 (5-19) 03/15/24 08:42 BUN 9 mg/dL (8-23) 03/15/24 08:42 Creatinine 0.8 mg/dL (0.5-0.9) 03/15/24 08:42 GFR Calculation 71.8 mL/min (90-130) L 03/15/24 08:42 Glucose 117 mg/dL (65-115) H 03/15/24 08:42 Estimat Average Glucose 123 03/14/24 01:17 Hemoglobin A1c 5.9 % (4.0-6.0) 03/14/24 01:17 Calculated Osmolality 274 mOsm/kg (285-295) L 03/15/24 08:42 Lactate 1.3 mmol/L (0.5-2.2) 03/14/24 01:17 Calcium 8.9 mg/dL (8.5-10.5) 03/15/24 08:42 Total Bilirubin 0.6 mg/dL (0.15-1.2) 03/15/24 08:42 AST 18 U/L (0-32) 03/15/24 08:42 ALT 26 U/L (0-33) 03/15/24 08:42 Alkaline Phosphatase 72 U/L (35-105) 03/15/24 08:42 Total Protein 6.7 g/dL (6.6-8.7) 03/15/24 08:42 Albumin 3.9 g/dL (3.5-5.2) 03/15/24 08:42 Globulin 2.8 g/dL (1.3-4.6) 03/15/24 08:42 Lipase 34 U/L (13-60) 03/13/24 21:58 TSH 3.32 uIU/mL (0.27-4.20) 03/14/24 01:17 Urine Color Yellow (Yellow) 03/14/24 07:00 Urine Appearance Clear (CLEAR) 03/14/24 07:00 Urine pH 5.5 (5-7) 03/14/24 07:00 Ur Specific [place] 1.022 (1.005-1.030) 03/14/24 07:00 Urine Protein Trace (Negative) A 03/14/24 07:00 Urine Glucose (UA) Negative (Normal) 03/14/24 07:00 Urine Ketones 1+ (Negative) H 03/14/24 07:00 Urine Blood Negative (Negative) 03/14/24 07:00 Urine Nitrate Negative (Negative) 03/14/24 07:00 Urine Bilirubin Negative (Negative) 03/14/24 07:00 Urine Urobilinogen 1.0 mg/dL (Negative) 03/14/24 07:00 Ur Leukocyte Esterase Negative (Negative) 03/14/24 07:00 Urine RBC 0-2 /hpf (0-2) 03/14/24 07:00 Urine WBC 0-5 /hpf (0-5) 03/14/24 07:00 Ur Squamous Epith Cells 0-5 /hpf (0-5) 03/14/24 07:00 Amorphous Sediment Not Reportable 03/14/24 07:00 Urine Bacteria None seen /hpf (NONE) 03/14/24 07:00 Hyaline Casts 2.05 /lpf 03/14/24 07:00 Ur Random Sodium 61 mmol/L 03/14/24 07:00 Salicylates < 0.3 mg/dL (3-10) L 03/14/24 01:17 Serum Ketones Negative (Negative) 03/14/24 01:17 Adenovirus (PCR) Not detected (NOT DETECT) 03/14/24 01:17 C. pneumoniae DNA (PCR) Not detected (NOT DETECT) 03/14/24 01:17 Coronavirus 229E (PCR) Not detected (NOT DETECT) 03/14/24 01:17 Human Metapneumovir PCR Not detected (NOT DETECT) 03/14/24 01:17 Influenza A (H1) PCR Not detected (NOT DETECT) 03/14/24 01:17 Influ A (H1/09) PCR Not detected (NOT DETECT) 03/14/24 01:17 Influenza A (H3) PCR Not detected (NOT DETECT) 03/14/24 01:17 Influenza Type A (PCR) Not detected (NOT DETECT) 03/14/24 01:17 Influenza Type B (PCR) Not detected (NOT DETECT) 03/14/24 01:17 M. pneumoniae (PCR) Not detected (NOT DETECT) 03/14/24 01:17 Parainfluenza 1 (PCR) Not detected (NOT DETECT) 03/14/24 01:17 Parainfluenza 2 (PCR) Not detected (NOT DETECT) 03/14/24 01:17 Parainfluenza 3 (PCR) Not detected (NOT DETECT) 03/14/24 01:17 Parainfluenza 4 (PCR) Not detected (NOT DETECT) 03/14/24 01:17 RSV Type A (PCR) Not detected (NOT DETECT) 03/14/24 01:17 RSV Type B (PCR) Not detected (NOT DETECT) 03/14/24 01:17 Entero/Rhino (PCR) Not detected (NOT DETECT) 03/14/24 01:17 SARS-CoV-2 (PCR) Not detected (NOT DETECT) 03/14/24 01:17 Vitals Last Vital Signs Temp 99.0 F 03/15/24 11:23 Pulse 76 03/15/24 11:23 Resp 16 03/15/24 11:23 BP 119/73 03/15/24 11:23 Pulse Ox 91 03/15/24 11:23 O2 Del Method Room Air 03/15/24 11:23 Discharge Plan Discharge Patient Disposition: Home Condition: Stable Prescriptions: No Action doxycycline hyclate 100 mg tablet 100 mg PO BID 7 Days Qty: 14 0RF lisinopril 10 mg tablet 10 mg PO BID 30 Days Qty: 60 0RF meclizine 25 mg tablet 25 mg PO BID PRN (Reason: dizziness) 7 Days Qty: 14 0RF Discharge Orders: Discharge Order (Routine); Ordered 03/15/24 Ordered By: Theron Saez Referrals: Emery Jordan DO [Physician] - 2 weeks (We have notified your physician's clinic of the need for a follow-up appointment to be scheduled. If you have not heard from them within the next 2 business days, please call them directly. ) Osman Gerber MD [Primary Care Provider] - 03/22/24 12:00 pm Patient Instructions: Acute Wound Care (DC), Opioid Safety, Post Anesthesia Care Discharge Attestations Time Spent in Discharge Care*: greater than 30 min Quality Metrics Clinical Quality Measures [ No reported AMI, CVA or VTE this stay] Coding Level of Care Code 72476 Total time (in minutes) for Discharge: 45 Diagnoses Gluteal abscess L02.31
--- NOTE | 2024-03-15 13:21 | PC.NURSE ---
Notified Dr. Saez, Patient discharging home no need to give zosyn
[2024-03-15 13:34] LABS: Osmolality Urine 700 mOsm/kg (50-1200)
--- NOTE | 2024-03-15 15:38 | PC.NURSE ---
Patient will take a shower once she gets home.
--- NOTE | 2024-03-15 16:58 | PC.NURSE ---
Discussed discharge with patient. Discussed new medications, stopped medications and follow up appointments. Patient verbalized understanding.
== END 2024-03-15 17:20 | disposition home or self-care (01) ==
LOC: ER 23:52 → MEDSURG 03-14 00:01
PROVIDERS: Admitting Provider Internal Medicine; Emergency Provider Physician Assistant; PCP Family Medicine; Visit Provider Family Medicine
DX: E87.1 Hypo-osmolality and hyponatremia (principal); L02.31 Cutaneous abscess of buttock; R11.2 Nausea with vomiting, unspecified; I10 Essential (primary) hypertension; R73.9 Hyperglycemia, unspecified; J44.9 Chronic obstructive pulmonary disease, unspecified; R42 Dizziness and giddiness; Z79.899 Other long term (current) drug therapy; Z88.1 Allergy status to other antibiotic agents; Z72.0 Tobacco use; Z90.710 Acquired absence of both cervix and uterus
CPT/HCPCS: 36415; 70551; 74019; 76882; 80048; 80053; 80307; 81001; 82009; 83036; 83605; 83690; 83935; 84295; 84300; 84443; 85025; 87070; 87075; 87205; 87486; 87581; 87633; 96365; 96367; 96372; 96375; 96376; 97110; 97161; 99285; G0378; J1650; J2405; J2470; J2543; J2765; J3370; J3490; J7030; J7050; J7120

== ENCOUNTER 2024-03-29 09:20 | Outpatient (CLI) | payer SELFPAY ==
[2024-03-29 10:10] LABS: Anion Gap 13.2 (5-19); Blood Urea Nitrogen 14 mg/dL (8-23); Calcium 9.1 mg/dL (8.5-10.5); Carbon Dioxide 28 mmol/L (22-29); Chloride 104 mmol/L (98-107); Glomerular Filtration Rate 83.7 mL/min (90-130); Glucose 112 mg/dL (65-115); Osmolality Calculated 293 mOsm/kg (285-295); Potassium 4.2 mmol/L (3.5-5.1); Sodium 141 mmol/L (136-145)
== END 2024-03-29 09:21 | disposition home or self-care (01) ==
PROVIDERS: PCP Family Medicine; Visit Provider Family Medicine
DX: I10 Essential (primary) hypertension (principal); R42 Dizziness and giddiness
CPT/HCPCS: 36415; 80048; 88305

== ENCOUNTER 2025-04-27 12:39 | Emergency (ER) | payer SELFPAY ==
[2025-04-27 13:12] VITALS: BP 177/94; PULSE 96; RESP 18; TEMP 36.7; O2SAT 95; BMI 34.5
--- NOTE | 2025-04-27 15:19 | CTR_ITS ---
PROCEDURE INFORMATION: Exam: CT Right Lower Extremity With Contrast, Thigh Exam date and time: 04/27/2025 4:15 PM Age: 69 years old Clinical indication: Other: Abscess/infected mass to R medial thigh TECHNIQUE: Imaging protocol: CT of the right lower extremity with intravenous contrast was performed. Exam focused on the thigh. Radiation optimization: All CT scans at this facility use at least one of these dose optimization techniques: automated exposure control; mA and/or kV adjustment per patient size (includes targeted exams where dose is matched to clinical indication); or iterative reconstruction. Contrast material: OMNI 350; Contrast volume: 100 ml; Contrast route: INTRAVENOUS (IV); COMPARISON: US soft tissue/extremity [id number] 03/14/2024 2:26 AM RADIATION DOSE METRICS: Total DLP (mGy-cm): 928.6 FINDINGS: Bones/joints: Mild lower lumbar facet arthrosis. Mild degenerative hip and knee arthrosis. Soft tissues: Multifocal collections compatible with abscesses largest up to 3.8 x 3.1 cm (series 4, image 29) in the posteromedial right proximal thigh reaching the skin surface near the gluteal crease. Other smaller foci including 4.5 x 1.5 cm tubular collection extend anteriorly and slightly inferiorly from this level reaching the anteromedial thigh subcutaneous tissues, approximately 2.6 cm deep to the skin surface. The smaller locules may not directly communicated to the more posterior locule. Moderate overlying skin thickening and hazy subcutaneous edema. No soft tissue gas. No intramuscular involvement. Vasculature: Heterogeneous flow in the femoropopliteal veins likely due to laminar flow. The study is not tailored for evaluation of DVT . Moderate atherosclerotic calcification of the iliac arteries without high-grade stenosis. Otherwise mild atherosclerotic calcification in the femoral and popliteal arteries without significant stenosis. CT/CT femur RT w con [id number] IMPRESSION: Multilocular collections largest 3.8 x 3.1 cm in the posteromedial proximal right thigh reaching the skin surface, consistent with abscesses in the appropriate clinical setting although follow-up may be considered to assess resolution after management and exclude any underlying lesion if clinically warranted.
[2025-04-27 15:20] VITALS: BP 128/79; O2SAT 94
[2025-04-27] MEDS: ondansetron 2 mg/ML SDV 2 mL 4 MG IVP ×2 (15:34→19:05)
[2025-04-27 15:41] LABS: Hematocrit 46.5 % (36-47); Hemoglobin 15.10 g/dL (11.27-16.99); Mean Corpuscular HGB Conc 32.5 g/dL (30-55); Mean Corpuscular Hemoglobin 27.9 pg (27-33); Mean Corpuscular Volume 85.8 fl (85-98); Nucleated Red Blood Cells % 0 %; Platelet Count 314 10^3/cmm (157-399); Red Blood Count 5.42 10^6/uL (3.85-5.65); White Blood Count 14.98 10^3/uL (3.29-11.43)
[2025-04-27 15:59] LABS: Alanine Aminotransferase 29 U/L (0-33); Albumin Level 4.2 g/dL (3.5-5.2); Alkaline Phosphatase 128 U/L (35-105); Anion Gap 20.3 (5-19); Aspartate Amino Transferase 21 U/L (0-32); Blood Urea Nitrogen 18 mg/dL (8-23); Calcium 9.5 mg/dL (8.5-10.5); Carbon Dioxide 25 mmol/L (22-29); Chloride 98 mmol/L (98-107); Creatinine Clr Calc Pharmacy 69.3232; Globulin 3.8 g/dL (1.3-4.6); Glucose 138 mg/dL (65-115); Lipase 15 U/L (13-60); Magnesium 2.1 mg/dL (1.7-2.3); Osmolality Calculated 294 mOsm/kg (285-295); Potassium 3.3 mmol/L (3.5-5.1); Sodium 140 mmol/L (136-145); Total Protein 8.0 g/dL (6.6-8.7)
[2025-04-27 16:00] LABS: Lactic Sepsis W/Reflex 1.9 mmol/L (0.5-2.2)
[2025-04-27] MEDS: iohexol 350 mg/mL 500 mL Btl (per mL) IV (16:24)
--- NOTE | 2025-04-27 16:29 | ED_ITS ---
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, status post gluteal abscess drainage a year ago, reports that she started developing over the last 2 to 3 days recurrent nausea vomiting weakness as well as increasing pain swelling and redness to a cystic lesion on the inner aspect of her posterior upper right thigh, she denies any abdominal pain, she denies chest pain or fever Related Data Home Medications ?Medication ?Instructions ?Recorded ?Confirmed [id number]-oazeteexbhyws-wqsdsypf 250 1 tab PO Q6H PRN Pa in 04/27/25 04/27/25 mg-250 mg-65 mg tablet (Excedrin Extra Strength) Previous Rx's ?Medication ?Instructions ?Recorded escitalopram oxalate 10 mg tablet See Rx Instructions .Route 04/05/25 .COMPLEX #30 tabs ondansetron 4 mg disintegrating See Rx Instructions .R oute 04/14/25 tablet .COMPLEX #20 tabs ondansetron 8 mg disintegrating 8 mg PO Q8H PRN nausea and 04/27/25 tablet vomiting 5 days #20 tabs sulfamethoxazole 800 1 tab PO BID 10 days #20 tab s 04/27/25 mg-trimethoprim 160 mg tablet (Bactrim DS) Allergies Allergy/AdvReac Type Severity Reaction Status Date / Time cephalexin (From Kef[employer]) Allergy Severe ADR-Vomitin Verified 03/29/24 13:11 g hydrochlorothiazide Allergy Intermediate hyponatremi Verified 03/29/24 13:23 a doxycycline Allergy Welps Verified 03/29/24 13:11 PFSH ED 2 PFSH: Medical History Depression Migraine Hypertension Surgical History S/P ESPERANZA-BSO age 30 Family History Other Hypertension Denies family history of Clotting disorder Anesthesia complication Bleeding disorder Social History Smoking and tobacco/nicotine status: never used tobacco/nicotine Alcohol intake: never Physical Exam 2 Narrative: EXAM NARRATIVE: Gen: A&Ox4, no acute distress, nontoxic appearing HEENT: Normocephalic, atraumatic, no scleral icterus, external ears normal, moist mucous membranes Neck: Supple, full range of motion, no observable masses Lungs: No Respiratory distress, Lungs clear to auscultation bilaterally no rales, rhonchi, wheezing CV: Regular rate and rhythm, no murmur, no pitting edema to lower extremities bilaterally Abdomen: Soft, nondistended, nontender to palpation MSK: No joint swelling, FROM all 4 extremities Skin: Right lower extremity with medial posterior proximal third of thigh with 2-3 areas of localized fluctuance and tenderness with erythema overlying 2 of the structures, no open skin wounds or active drainage Neuro: Alert and oriented, no slurred speech, sensation and strength grossly intact all 4 extremities Psych: Appropriate for situation. Procedures Abscess I/D Site: lower extremity (R posteromedial upper thigh) Side (if applicable): right Local Anesthetic: lidocaine 1% and with epi Amount of anesthesia used (mL): 5 Technique: incised with #11 blade Amount of fluid expressed (mL): 20 Irrigation: Yes Packing used?: none Course 2 Reevaluation(s): Reevaluation #1: Labs showing leukocytosis, no lactic acidosis, CT showing posterior medial multiloculated fluid collection, the most superficial of which appears to be coinciding with the area of acute inflammation and infection on physical exam, this was incised with an 11 blade with expression of approximately 10 to 20 cc of pus and blood, significant improvement of symptoms postprocedure per patient, will discharge on Bactrim, Zofran for nausea, PCP follow-up recommendation and return precautions discussed prior to discharge. Time: 18:39 Vital Signs: Vital signs: Vital Signs Temperature 98.1 F 04/27/25 13:12 Pulse Rate 96 04/27/25 13:12 Respiratory Rate 18 04/27/25 13:12 Blood Pressure 157/108 04/27/25 17:03 Pulse Oximetry 100 04/27/25 17:03 Oxygen Delivery Me thod Room Air 04/27/25 17:03 MDM - Nausea/Vomiting/Diarrhea Medical Decision Making 69-year-old female presenting with painful cystic lesion to the right inner thigh, has multiple chronic lesions in various parts of her body but is developing over the last 2 to 3 days increasing pain swelling of this area with associated nausea and vomiting, the skin does appear inflamed and is tender to the touch however it is difficult to appreciate the extent or depth of these cystic structures or whether they communicate with each other by a physical exam alone, plan for CT of the femur with contrast to assess extent and depth to see if amenable for bedside drainage or may require surgical drainage in the OR, consider antibiotics, reassess for disposition Lab Data Labs showing leukocytosis to 15, mild hypokalemia not clinically relevant, mild hyperglycemia 138, normal sodium, normal LFTs, normal lactate, normal creatinine 04/27/25 15:24 04/27/25 15:[address] 04/27/25 15:19 IMPRESSION: Multilocular collections largest 3.8 x 3.1 cm in the posteromedial proximal right thigh reaching the skin surface, consistent with abscesses in the appropriate clinical setting although follow-up may be considered to assess resolution after management and exclude any underlying lesion if clinically warranted. Laboratory Results WBC 14.98 10^3/uL (3.29-11.43) H 04/27/25 15:24 RBC 5.42 10^6/uL (3.85-5.65) 04/27/25 15:24 Hgb 15.10 g/dL (11.27-16.99) 04/27/25 15:24 Hct 46.5 % (36-47) 04/27/25 15:24 MCV 85.8 fl (85-98) 04/27/25 15:24 MCH 27.9 pg (27-33) 04/27/25 15:24 MCHC 32.5 g/dL (30-55) 04/27/25 15:24 RDW 13.3 % (12.1-15.1) 04/27/25 15:24 Plt Count 314 10^3/cmm (157-399) 04/27/25 15:24 MPV 9.5 fL (7.4-10.4) 04/27/25 15:24 Neut % (Auto) 81.1 % 04/27/25 15:24 Lymph % (Auto) 11.3 % 04/27/25 15:24 [place] % (Auto) 6.7 % 04/27/25 15:24 Eos % (Auto) 0.0 % 04/27/25 15:24 Baso % (Auto) 0.3 % 04/27/25 15:24 Neut # (Auto) 12.15 10^3/uL (1.8-7.7) H 04/27/25 15:24 Lymph # (Auto) 1.7 10^3/uL (0.8-4.8) 04/27/25 15:24 [place] # (Auto) 1.0 10^3/uL (0.2-0.9) H 04/27/25 15:24 Eos # (Auto) 0.0 10^3/uL (0.0-0.8) 04/27/25 15:24 Baso # (Auto) 0.0 10^3/uL (0.0-0.1) 04/27/25 15:24 Nucleated RBC % (auto) 0 % 04/27/25 15:24 Nucleated RBCs # 0.0 /100WBC 04/27/25 15:24 Sodium 140 mmol/L (136-145) 04/27/25 15:24 Potassium 3.3 mmol/L (3.5-5.1) L 04/27/25 15:24 Chloride 98 mmol/L (98-107) 04/27/25 15:24 Carbon Dioxide 25 mmol/L (22-29) 04/27/25 15:24 Anion Gap 20.3 (5-19) H 04/27/25 15:24 BUN 18 mg/dL (8-23) 04/27/25 15:24 Creatinine 0.6 mg/dL (0.5-0.9) 04/27/25 15:24 GFR Calculation 99.7 mL/min (90-130) 04/27/25 15:24 Glucose 138 mg/dL (65-115) H 04/27/25 15:24 Calculated Osmolality 294 mOsm/kg (285-295) 04/27/25 15:24 Lactic Acid 1.9 mmol/L (0.5-2.2) 04/27/25 15:24 Calcium 9.5 mg/dL (8.5-10.5) 04/27/25 15:24 Magnesium 2.1 mg/dL (1.7-2.3) 04/27/25 15:24 Total Bilirubin 0.9 mg/dL (0.15-1.2) 04/27/25 15:24 AST 21 U/L (0-32) 04/27/25 15:24 ALT 29 U/L (0-33) 04/27/25 15:24 Alkaline Phosphatase 128 U/L (35-105) H 04/27/25 15:24 Total Protein 8.0 g/dL (6.6-8.7) 04/27/25 15:24 Albumin 4.2 g/dL (3.5-5.2) 04/27/25 15:24 Globulin 3.8 g/dL (1.3-4.6) 04/27/25 15:24 Lipase 15 U/L (13-60) 04/27/25 15:24 All radiology interpretation(s) finalized by discharge ED provider radiology interpretation(s): CT femur showing multiloculated fluid collection consistent with abscess Discharge Plan Discharge Patient Disposition: Home Clinical Impression: Abscess, Vomiting Condition: Stable Prescriptions: New sulfamethoxazole-trimethoprim [Bactrim DS] 800-160 mg tablet 1 tab PO BID 10 Days Qty: 20 0RF ondansetron 8 mg tablet,disintegrating 8 mg PO Q8H PRN (Reason: nausea and vomiting) 5 Days Qty: 20 0RF No Action escitalopram oxalate 10 mg tablet See Rx Instructions .ROUTE .COMPLEX Qty: 30 11RF Dose Instruction: TAKE 1 TABLET BY MOUTH EVERY DAY Rx Instructions: TAKE 1 TABLET BY MOUTH EVERY DAY ondansetron 4 mg tablet,disintegrating See Rx Instructions .ROUTE .COMPLEX Qty: 20 11RF Dose Instruction: DISSOLVE ONE TABLET BY MOUTH EVERY 6 HOURS NEEDED FOR NAUSEA AND VOMITING Rx Instructions: DISSOLVE ONE TABLET BY MOUTH EVERY 6 HOURS NEEDED FOR NAUSEA AND VOMITING [id number]-wgchhanu [Excedrin Extra Strength] 250-250-65 mg Tablet 1 tab PO Q6H PRN (Reason: Pain) Discharge Orders: Discharge ED (Routine); Ordered 04/27/25 Ordered By: Jevon Shearer Referrals: Osman Gerber MD [Primary Care Provider, Family Practice] Patient Instructions: Patient Portal & [facility] Instructions, Abscess Incision and Drainage (DC) Print Language: Korean Coding Level of Care Code ED Brush Cutter for Corie Maddox
[2025-04-27 16:32] VITALS: BP 167/96
[2025-04-27 17:03] VITALS: BP 157/108; O2SAT 100
[2025-04-27] MEDS: sulfamethoxazole-trimeth DS 160-800 mg Tablet 1 TAB PO (18:21)
[2025-04-27 19:09] VITALS: BP 169/88; PULSE 93; RESP 17; O2SAT 95
== END 2025-04-27 19:10 | disposition home or self-care (01) ==
PROVIDERS: Emergency Provider Student in an Organized Health Care Education/Training Program; PCP Family Medicine
DX: L02.415 Cutaneous abscess of right lower limb (principal); R11.10 Vomiting, unspecified; Z79.82 Long term (current) use of aspirin; I10 Essential (primary) hypertension
CPT/HCPCS: 10060; 36415; 73701; 80053; 83605; 83690; 83735; 85025; 87040; 96374; 96375; 99285; J1885; J2405; J3490; J7030; J9999

== ENCOUNTER 2025-05-07 12:13 | Emergency (ER) | payer SELFPAY ==
[2025-05-07 12:13] VITALS: BP 173/79; PULSE 81; RESP 18; TEMP 37.1; O2SAT 97; BMI 34.7
--- NOTE | 2025-05-07 12:14 | XR_ITS ---
WS: [id number] XR acute abdomen series 03893 REASON FOR EXAM: Vomiting and weakness FINDINGS: No free air or retroperitoneal air. Mild gaseous gastric distention. The remainder of the bowel gas pattern was unremarkable with no findings of obstruction. No organomegaly or mass. No urinary tract calculi identified. XR/XR acute abdomen series [id number] IMPRESSION: Mild gaseous distention of the stomach. Examination otherwise unremarkable.
--- NOTE | 2025-05-07 12:14 | ECG_ITS ---
[employer] Test Date: 2025-05-07 Pat Name: Savi Lucas Department: Room: Gender: Female Golf Caddy: : 1955 Requested By: Tomeka Solis Order Number: [id number] Dong MD: Malcolm Bone M.D. Measurements Intervals Armstrong Rate: 74 P: 83 WA: 177 QRS: 45 QRSD: 80 T: 85 QT: 397 QTc: 442 Interpretive Statements SINUS RHYTHM MINIMAL ST DEPRESSION [0.025+ mV ST DEPRESSION] Compared to ECG 08/06/2018 10:22:38 ST (T wave) deviation now present Sinus tachycardia no longer present Electronically Signed On 05-08-2025 08:52:02 PROCESS WORKER by Malcolm Bone M.D. [email or web address]
--- NOTE | 2025-05-07 12:22 | ED_ITS ---
HPI - Weakness 2 General: Chief complaint: Weakness Stated complaint: N/V Weakness Time Seen by Provider: 05/07/25 12:14 History of Present Illness: 69-year-old female with a history of jose ruth, depression, hypertension and obesity who presents to the emergency room with generalized weakness, nausea and vomiting for about 2 weeks now. Said initially was she was seen in the ER and had a cyst drained on her hip and was started on antibiotics. She seen her PCP since then. It was thought initially this illness was related to that but its improved now and she is still has nausea vomiting. She says she can usually keep her morning dose of antibiotic down but not the evening and she says by mid afternoon she usually feels bloated. No focal abdominal pain Related Data Home Medications ?Medication ?Instructions ?Recorded ?Confirmed pmezyou-dhvuwmabhzskx-skwrvfrz 250 1 tab PO Q6H PRN Pa in 04/27/25 04/29/25 mg-250 mg-65 mg tablet (Excedrin Extra Strength) Previous Rx's ?Medication ?Instructions ?Recorded escitalopram oxalate 10 mg tablet See Rx Instructions .Route 04/05/25 .COMPLEX #30 tabs ondansetron 4 mg disintegrating See Rx Instructions .R oute 04/14/25 tablet .COMPLEX #20 tabs ciprofloxacin HCl 500 mg tablet 500 mg PO BID 10 days #20 tabs 05/07/25 hydrocodone 5 mg-acetaminophen 325 1 tab PO Q6H PRN pa in #20 tabs 05/07/25 mg tablet metronidazole 500 mg tablet 500 mg PO Q8H 10 days #30 tabs 05/07/25 ondansetron 8 mg disintegrating 8 mg PO Q6H #14 tabs 1 07/07/24 tablet promethazine 25 mg rectal 25 mg DC Q6H PRN nausea and 05/07/25 suppository vomiting #12 ea Allergies Allergy/AdvReac Type Severity Reaction Status Date / Time cephalexin (From [employer]) Allergy Severe ADR-Vomitin Verified 03/29/24 13:11 g hydrochlorothiazide Allergy Intermediate hyponatremi Verified 03/29/24 13:23 a doxycycline Allergy Welps Verified 03/29/24 13:11 Review of Systems 2 Narrative: Constitutional symptoms: Negative except as documented in HPI. Skin symptoms: Negative except as documented in HPI. Eye symptoms: Negative except as documented in HPI. ENMT symptoms: Negative except as documented in HPI. Respiratory symptoms: Negative except as documented in HPI. Cardiovascular symptoms: Negative except as documented in HPI. Gastrointestinal symptoms: Negative except as documented in HPI. Genitourinary symptoms: Negative except as documented in HPI. Musculoskeletal symptoms: Negative except as documented in HPI. Neurologic symptoms: Negative except as documented in HPI. Psychiatric symptoms: Negative except as documented in HPI. Endocrine symptoms: Negative except as documented in HPI. PFSH ED 2 PFSH: Medical History (Updated 05/07/25 @ 15:56 by Tomeka Pendleton MD) Depression Migraine Hypertension Surgical History S/P ESPERANZA-BSO age 30 Family History Other Hypertension Denies family history of Clotting disorder Anesthesia complication Bleeding disorder Social History Smoking and tobacco/nicotine status: never used tobacco/nicotine Alcohol intake: never Physical Exam 2 Narrative: EXAM NARRATIVE: General: Alert, no acute distress. Skin: Warm, dry. Head: Normocephalic, atraumatic. Neck: Supple, trachea midline. Eye: Extraocular movements are intact. Ears, nose, mouth and throat: Tacky oral mucosa Cardiovascular: Regular, Normal peripheral perfusion. Respiratory: Lungs are clear to auscultation, respirations are non-labored, breath sounds are equal, Symmetrical chest wall expansion. Gastrointestinal: Soft, Nontender, Non distended Musculoskeletal: Normal ROM, no deformity. Neurological: Alert and oriented, No focal neurological deficit observed. Psychiatric: Cooperative, appropriate mood & affect. Course 2 Vital Signs: Vital signs: Vital Signs Temperature 98.7 F 05/07/25 12:13 Pulse Rate 81 05/07/25 12:13 Respiratory Rate 18 05/07/25 12:13 Blood Pressure 173/79 05/07/25 12:13 Pulse Oximetry 97 05/07/25 12:13 Oxygen Delivery Me thod Room Air 05/07/25 12:13 MDM - Weakness Medical Decision Making Medical decision making Patient's reason for coming to the emergency room: Nausea and vomiting Social determinants: Unemployed. . I reviewed the patient's medical record. 69-year-old female with a history of migraines, depression, hypertension and obesity. Was seen by Dr. House in clinic for the abscess recently. 8 days ago I reviewed the patient's current home meds Patient was treated with Bactrim which may have caused her symptoms as well. Alternate historians: None Differential diagnosis for this patient with nausea and vomiting including but not limited to and based on the above HPI, review of systems and physical exam: Urinary tract infection. Appendicitis. Cholecystitis. Colitis. small bowel obstruction. crohn's flare. pancreatitis. gastritis. peptic ulcer. cyclic vomiting. Viral illness. Influenza. COVID. Orders placed to evaluate differential diagnosis based on the above differential, HPI and physical exam Lab Review: Laboratory results were reviewed and interpreted by myself the emergency room physician. No leukocytosis. Lactic acid is not elevated. No anemia. BUN and creatinine are elevated over her baseline at 19 and 1. Her creatinine is normally around 0.6. Her urine is also quite concentrated which would indicate dehydration as well. Also some signs of infection. White cells etc. CT of the abdomen pelvis: Thickening of sigmoid colon which be suspicious for early mild or partially treated diverticulitis. This is consistent with her symptoms. We are treating as such. This was reviewed and interpreted by myself the emergency room physician. I also reviewed the radiology report. Assessment of risk: Level of risk: Moderate risk patient. Multiple comorbidities. Hospitalization considerations: Reexamination: Patient remained stable. No increased work of breathing. No altered mental status. No focal motor deficits. Assessment and plan: Colitis Urinary tract infection Dehydration ? 2 L normal saline bolus. IV Rocephin here. Home on Cipro and Flagyl. IV Zofran. - Discharged home - Discussed plan with patient. Answered any questions. - Evaluation and treatment of this problem were appropriate in the emergency setting. Lab Data 05/07/25 12:35 05/07/25 12:35 Radiology Impressions Chest/Abdomen X-ray 05/07/25 12:14 IMPRESSION: Mild gaseous distention of the stomach. Examination otherwise unremarkable. Abdomen/Pelvis CT 05/07/25 13:27 IMPRESSION: 1. Mild thickening of the sigmoid colon with slight surrounding induration suspicious for early, mild, or partially treated diverticulitis. Recommend correlation with symptoms. 2. Normal renal parenchymal enhancement. No hydronephrosis. 3. Mild hepatomegaly with fatty infiltration. 4. Evidence of esophagitis gastritis and duodenitis. Small esophageal hiatal hernia. 5. No other acute findings. Laboratory Results WBC 9.28 10^3/uL (3.29-11.43) 05/07/25 12:35 RBC 5.77 10^6/uL (3.85-5.65) H 05/07/25 12:35 Hgb 15.70 g/dL (11.27-16.99) 05/07/25 12:35 Hct 49.6 % (36-47) H 05/07/25 12:35 MCV 86.0 fl (85-98) 05/07/25 12:35 MCH 27.2 pg (27-33) 05/07/25 12:35 MCHC 31.7 g/dL (30-55) 05/07/25 12:35 RDW 13.3 % (12.1-15.1) 05/07/25 12:35 Plt Count 388 10^3/cmm (157-399) 05/07/25 12:35 MPV 9.5 fL (7.4-10.4) 05/07/25 12:35 Neut % (Auto) 68.8 % 05/07/25 12:35 Lymph % (Auto) 25.5 % 05/07/25 12:35 [place] % (Auto) 4.7 % 05/07/25 12:35 Eos % (Auto) 0.4 % 05/07/25 12:35 Baso % (Auto) 0.4 % 05/07/25 12:35 Neut # (Auto) 6.37 10^3/uL (1.8-7.7) 05/07/25 12:35 Lymph # (Auto) 2.4 10^3/uL (0.8-4.8) 05/07/25 12:35 [place] # (Auto) 0.4 10^3/uL (0.2-0.9) 05/07/25 12:35 Eos # (Auto) 0.0 10^3/uL (0.0-0.8) 05/07/25 12:35 Baso # (Auto) 0.0 10^3/uL (0.0-0.1) 05/07/25 12:35 Nucleated RBC % (auto) 0 % 05/07/25 12:35 Nucleated RBCs # 0.0 /100WBC 05/07/25 12:35 Sodium 141 mmol/L (136-145) 05/07/25 12:35 Potassium 4.1 mmol/L (3.5-5.1) 05/07/25 12:35 Chloride 97 mmol/L (98-107) L 05/07/25 12:35 Carbon Dioxide 26 mmol/L (22-29) 05/07/25 12:35 Anion Gap 22.1 (5-19) H 05/07/25 12:35 BUN 19 mg/dL (8-23) 05/07/25 12:35 Creatinine 1.0 mg/dL (0.5-0.9) H 05/07/25 12:35 GFR Calculation 55.3 mL/min (90-130) L 05/07/25 12:35 Glucose 114 mg/dL (65-115) 05/07/25 12:35 Calculated Osmolality 295 mOsm/kg (285-295) 05/07/25 12:35 Lactic Acid 2.1 mmol/L (0.5-2.2) 05/07/25 12:35 Calcium 9.6 mg/dL (8.5-10.5) 05/07/25 12:35 Total Bilirubin 0.6 mg/dL (0.15-1.2) 05/07/25 12:35 AST 13 U/L (0-32) 05/07/25 12:35 ALT 15 U/L (0-33) 05/07/25 12:35 Alkaline Phosphatase 109 U/L (35-105) H 05/07/25 12:35 C-Reactive Protein 3.5 mg/L (0.0-4.9) 05/07/25 12:35 Total Protein 7.5 g/dL (6.6-8.7) 05/07/25 12:35 Albumin 4.4 g/dL (3.5-5.2) 05/07/25 12:35 Globulin 3.1 g/dL (1.3-4.6) 05/07/25 12:35 Lipase 30 U/L (13-60) 05/07/25 12:35 Urine Color Yellow (Yellow) 05/07/25 15:00 Urine Appearance Clear (CLEAR) 05/07/25 15:00 Urine pH 6.5 (5-7) 05/07/25 15:00 Ur Specific Damar 1.081 (1.005-1.030) H 05/07/25 15:00 Urine Protein 1+ (Negative) A 05/07/25 15:00 Urine Glucose (UA) Negative (Normal) 05/07/25 15:00 Urine Ketones 2+ (Negative) H 05/07/25 15:00 Urine Blood 3+ (Negative) A 05/07/25 15:00 Urine Nitrate Negative (Negative) 05/07/25 15:00 Urine Bilirubin Negative (Negative) 05/07/25 15:00 Urine Urobilinogen 1.0 mg/dL (Negative) 05/07/25 15:00 Ur Leukocyte Esterase Negative (Negative) 05/07/25 15:00 Urine RBC >100 /hpf (0-2) H 05/07/25 15:00 Urine WBC 6-10 /hpf (0-5) 05/07/25 15:00 Ur Squamous Epith Cells 11-20 /hpf (0-5) H 05/07/25 15:00 Amorphous Sediment Not Reportable 05/07/25 15:00 Urine Bacteria None seen /hpf (NONE) 05/07/25 15:00 Hyaline Casts 0.81 /lpf 05/07/25 15:00 Urine Mucus 3+ /hpf 05/07/25 15:00 Influenza A (PCR) Negative (Negative) 05/07/25 12:52 Influenza Type B (PCR) Negative (Negative) 05/07/25 12:52 RSV (PCR) Negative (Negative) 05/07/25 12:52 SARS-CoV-2 (PCR) Negative (Negative) 05/07/25 12:52 All radiology interpretation(s) finalized by discharge Discharge Plan Discharge Patient Disposition: Home Clinical Impression: Colitis, Acute UTI, Dehydration Condition: Stable Prescriptions: New hydrocodone-acetaminophen 5-325 mg tablet 1 tab PO Q6H PRN (Reason: pain) Qty: 20 0RF promethazine 25 mg suppository 25 mg DC Q6H PRN (Reason: nausea and vomiting) Qty: 12 0RF metronidazole 500 mg tablet 500 mg PO Q8H 10 Days Qty: 30 0RF ciprofloxacin HCl 500 mg tablet 500 mg PO BID 10 Days Qty: 20 0RF ondansetron 8 mg tablet,disintegrating 8 mg PO Q6H Qty: 14 0RF Rx Instructions: Take 1/2-1 tab every 6 hours as needed for nausea and vomiting No Action escitalopram oxalate 10 mg tablet See Rx Instructions .ROUTE .COMPLEX Qty: 30 11RF Dose Instruction: TAKE 1 TABLET BY MOUTH EVERY DAY Rx Instructions: TAKE 1 TABLET BY MOUTH EVERY DAY ondansetron 4 mg tablet,disintegrating See Rx Instructions .ROUTE .COMPLEX Qty: 20 11RF Dose Instruction: DISSOLVE ONE TABLET BY MOUTH EVERY 6 HOURS NEEDED FOR NAUSEA AND VOMITING Rx Instructions: DISSOLVE ONE TABLET BY MOUTH EVERY 6 HOURS NEEDED FOR NAUSEA AND VOMITING [id number] [Excedrin Extra Strength] 250-250-65 mg Tablet 1 tab PO Q6H PRN (Reason: Pain) Discharge Orders: Discharge ED (Routine); Ordered 05/07/25 Ordered By: Tomeka Pendleton Referrals: Osman Gerber MD [Primary Care Provider, [facility]] Discharge Diet: Usual diet Discharge Activity: Increase activity as tolerated Patient Instructions: Dehydration (ED), Colitis (ED), Opioid Safety, Pain Management, Patient Portal & [facility] Instructions Activity Restrictions/Additional Instructions: Thank you for choosing [facility] for your healthcare needs today. You have been screened and evaluated and felt safe for discharge. Health conditions do change or evolve sometimes and as such it is important that you follow up with your Primary Doctor to be re checked, 3-5 days is a general good time frame for follow up. You are always welcome to return to the ED for re assessment if your symptoms are worsening or you have new concerns Print Language: Latvian Coding Level of Care Code ED Merchandise Clerk for Corie Maddox
[2025-05-07 12:56] LABS: Hematocrit 49.6 % (36-47); Hemoglobin 15.70 g/dL (11.27-16.99); Mean Corpuscular HGB Conc 31.7 g/dL (30-55); Mean Corpuscular Hemoglobin 27.2 pg (27-33); Mean Corpuscular Volume 86.0 fl (85-98); Nucleated Red Blood Cells % 0 %; Platelet Count 388 10^3/cmm (157-399); Red Blood Count 5.77 10^6/uL (3.85-5.65); White Blood Count 9.28 10^3/uL (3.29-11.43)
[2025-05-07 13:18] LABS: Lactic Sepsis W/Reflex 2.1 mmol/L (0.5-2.2)
[2025-05-07 13:24] LABS: Alanine Aminotransferase 15 U/L (0-33); Albumin Level 4.4 g/dL (3.5-5.2); Alkaline Phosphatase 109 U/L (35-105); Anion Gap 22.1 (5-19); Aspartate Amino Transferase 13 U/L (0-32); Blood Urea Nitrogen 19 mg/dL (8-23); Calcium 9.6 mg/dL (8.5-10.5); Carbon Dioxide 26 mmol/L (22-29); Chloride 97 mmol/L (98-107); Globulin 3.1 g/dL (1.3-4.6); Glucose 114 mg/dL (65-115); Lipase 30 U/L (13-60); Osmolality Calculated 295 mOsm/kg (285-295); Potassium 4.1 mmol/L (3.5-5.1); Sodium 141 mmol/L (136-145); Total Protein 7.5 g/dL (6.6-8.7)
--- NOTE | 2025-05-07 13:27 | CT_ITS ---
WS: [id number] CT ABDOMEN PELVIS TECHNIQUE: Contrast-enhanced CT of the abdomen and pelvis with coronal and sagittal reformatted images. CLINICAL INFORMATION: Abdominal pain COMPARISON: None. DLP: 763.[address] scans at [facility] use at least one of these dose optimization techniques: automated exposure control; mA and/or kV adjustment per patient size (includes targeted exams where dose is matched to clinical indication); or iterative reconstruction. FINDINGS: Lung bases are well aerated. Calcified granulomas in the lower lobes. Hepatomegaly. Fatty liver. Normal portal vein and splenic vein. Normal gallbladder. Bilateral adrenal thickening. Fluid distended stomach with air- fluid level. Small esophageal hiatal hernia. Evidence of esophagitis gastritis and duodenitis. Normal spleen. Normal caliber abdominal aorta. Aortic calcification. Slightly aneurysmal abdominal aorta measuring 2.2 x 2.1 cm. Normal renal parenchymal enhancement. No hydronephrosis. Tiny fat-containing umbilical hernia. Small LEFT renal cysts. Sigmoid diverticulosis. Mild thickening of the sigmoid colon with slight induration may be due to partially treated or mild diverticulitis. Recommend correlation with symptoms. No drainable abscess or fluid collection. Mild lumbar curve. CT/CT abdomen pelvis w con* [id number] IMPRESSION: 1. Mild thickening of the sigmoid colon with slight surrounding induration sue picious for early, mild, or partially treated diverticulitis. Recommend correla tion with symptoms. 2. Normal renal parenchymal enhancement. No hydronephrosis. 3. Mild hepatomegaly with fatty infiltration. 4. Evidence of esophagitis gastritis and duodenitis. Small esophageal hiatal h ernia. 5. No other acute findings.
[2025-05-07 13:32] LABS: Respiratory Syncytial Virus Ce NEGATIVE (Negative); SARS-CoV-2 PCR NEGATIVE (Negative)
[2025-05-07] MEDS: ondansetron 2 mg/ML SDV 2 mL 4 MG IVP (13:35)
[2025-05-07] MEDS: iohexol 350 mg/mL 500 mL Btl (per mL) IV (13:52)
[2025-05-07 14:34] LABS: Reflex Lactate Order REFLEX LACTIC ORDERD
[2025-05-07 15:09] LABS: Glucose Urine UA Negative (Normal); Nitrate Urine Negative (Negative)
[2025-05-07 15:31] LABS: Specific Gravity, Urine 1.081 (1.005-1.030); UA Slide Review UA Slide Review Perf
[2025-05-07] MEDS: cefTRIAXone 1,000 mg SDV 1000 MG IVP (15:53)
[2025-05-07] MEDS: diphenhydrAMINE 50 mg/mL SDV 1mL IVP (16:49)
[2025-05-07] MEDS: ondansetron 2 mg/ML SDV 2 mL 8 MG IVP (16:50)
[2025-05-07 16:51] LABS: Lactic Acid level (Lactate) 1.7 mmol/L (0.5-2.2)
[2025-05-07 18:23] VITALS: BP 160/81; PULSE 78; O2SAT 95
== END 2025-05-07 18:01 | disposition home or self-care (01) ==
PROVIDERS: Emergency Provider Emergency Medicine; PCP Family Medicine
DX: K52.9 Noninfective gastroenteritis and colitis, unspecified (principal); N39.0 Urinary tract infection, site not specified; E86.0 Dehydration; Z11.52 Encounter for screening for COVID-19; Z79.82 Long term (current) use of aspirin; I10 Essential (primary) hypertension
CPT/HCPCS: 36415; 74022; 74177; 80053; 81001; 83605; 83690; 85025; 86140; 87040; 87086; 87637; 93005; 96374; 96375; 96376; 99285; J0696; J0780; J1200; J2405; J7030